=== PATIENT | female | born 1980 | race Caucasian/White ===

== ENCOUNTER 2023-04-25 16:29 | Emergency (ER) | payer BC ==
[~2023-04-25] VITALS: Ht 154.9 cm; Wt 70.0 kg
[2023-04-25 16:54] VITALS: O2SAT 100
[2023-04-25] MEDS ORDERED: KETOROLAC 60MG/2ML VIAL IM ONE (18:30)
[2023-04-25] MEDS ORDERED: LORAZEPAM 0.5MG TABLET PO ONE (18:30)
[2023-04-25 18:44] VITALS: BP 100/69
[2023-04-25] MEDS ORDERED: IBUP-2029 MT (19:31)
[2023-04-25] MEDS ORDERED: CYCL10TA21 MT (19:31)
[2023-04-25 19:39] VITALS: PULSE 79; RESP 16; TEMP 98.4
== END 2023-04-25 19:40 | disposition home or self-care (01) ==
LOC: ER 16:29
DX: M54.50 Low back pain, unspecified (principal); Z98.890 Other specified postprocedural states
CPT/HCPCS: 81025; 72100; 96372; 99283; J1885; Z7610